=== PATIENT | male | born 1985 | race Asian ===

== ENCOUNTER 2025-06-10 22:27 | Emergency (ER) | payer OTHER ==
[~2025-06-10] VITALS: Ht 182.9 cm; Wt 85.0 kg
[2025-06-10 22:31] VITALS: O2SAT 98
[2025-06-10] MEDS: IBUPROFEN 600MG TABLET PO ONE (23:08)
[2025-06-10] MEDS: TETANUS, DIPHTHERIA, PERTUSSIS VAC/PF 0.5ML (>10YR OLD) IM ONE (23:11)
[2025-06-11] MEDS ORDERED: IBUP-1455 MT (01:08)
[2025-06-11] MEDS ORDERED: BO1 TP (01:08)
[2025-06-11 01:26] VITALS: BP 123/98; PULSE 77; RESP 16; O2SAT 98
== END 2025-06-11 01:29 | disposition home or self-care (01) ==
LOC: ER 22:27
DX: S80.12XA Contusion of left lower leg, initial encounter (principal); S80.11XA Contusion of right lower leg, initial encounter; V49.40XA Driver injured in collision with unspecified motor vehicles in traffic accident, initial encounter; Y93.89 Activity, other specified; Y92.89 Other specified places as the place of occurrence of the external cause; Y99.8 Other external cause status
CPT/HCPCS: 73590; 90715; 90471; 99285; 93970; Z7610